=== PATIENT | male | born 1985 | race Caucasian/White ===

== ENCOUNTER 2022-09-06 19:26 | Emergency (ER) | payer BC, MEDICAID, SELFPAY ==
[2022-09-06 19:27] VITALS: BP 148/81; PULSE 68; RESP 16; TEMP 36.8; O2SAT 100; BMI 38.0
--- NOTE | 2022-09-06 21:54 | HMH.EDEYEP ---
Discharge Plan Disposition Patient Disposition: Home, Self-Care Chief Complaint: Eye Problems Prescriptions Prescriptions: No Action amoxicillin 500 mg tablet 500 mg PO BID 10 Days Qty: 20 0RF Referrals Follow up/Referrals: Shakila Keller [Primary Care Provider] - See instructions Clinical Impressions Clinical Impression: Corneal foreign body Instructions Patient Instructions: DI for Eye Pain Discharge ED Provider: Regan Suarez Eye Problem HPI General Chief complaint: Eye Problems Stated complaint: metal shavings in eyes Time Seen by Provider: 09/06/22 21:54 Mode of Arrival: Ambulatory Source of Information: Patient, Spouse and Medical Record Limitations: No Limitations Description of Symptoms (Recalled from ER Triage Doc. by RN): pt grinding under truck and metal shavings fell into rt eye History of Present Illness HPI Narrative: possible metal shaving rt eye MD chief complaint: foreign body Onset (ago): hour(s) Duration: intermittent Location: right eye Eye Symptoms: foreign body sensation Place: home Mechanism: occurred while hammering/grinding Severity: moderate Treatments Prior to Arrival: irrigated eye Related Data Previous Rx's Medication Instructions Recorded amoxicillin 500 mg tablet 500 mg PO BID 10 days #20 tabs 05/28/19 Allergies Allergy/AdvReac Type Severity Reaction Status Date / Time No Known Allergies Allergy Verified 05/28/19 19:31 PFSH PFSH Social History Smoking Status: Current every day smoker tobacco type: cigarettes packs per day: 1 alcohol intake: current substance use type: denies use current occupational status: employed Travel in the last 8 weeks: None household members: spouse housing: house ROS Obtained: Yes All systems reviewed & no additional complaints except as documented Physical Exam General General appearance: in no apparent distress Head Head exam: normocephalic Eye Eye exam: Present PERRL, EOMI and other (no def fb seen and neg fluro stain and irrigated with cristobal lens ) Neck Neck exam: Present trachea midline Respiratory Respiratory exam: Absent respiratory distress Cardiovascular Cardiovascular exam: Present regular rate Extremities Exam Extremities exam: Present full ROM Neurological Exam Neurological exam: Present alert, oriented X3 and CN II-XII intact Psychiatric Psychiatric exam: Present normal affect Skin Skin exam: Absent rash Medical Decision Making Medical Records Medical records reviewed: Yes I reviewed the patient's medical records. [place] Inquiry Pt receiving controlled substance: No Vital Signs: 09/06/22 19:27 Temperature 98.3 F Temperature Source Oral Pulse Rate [Right] 68 Respiratory Rate 16 Blood Pressure [Right Arm] 148/81 H Blood Pressure Mean [Right Arm] 103 02 Sat by Pulse Oximetry 100 Lab Data Lab results reviewed: Yes I reviewed the patient's lab results. Orders (Tests/Meds): ED MEDICATIONS Discontinued Medications Generic Name Dose Route Start Last Admin Trade Name Freq PRN Reason Stop Dose Admin Tetanus/Reduced Diphtheria/Acell Pertussis 0.5 ml 09/06/22 19:59 09/06/22 21:26 Tet/Diphth/Pert-Adult 0.5ml Syringe IM 09/06/22 20:00 0.5 ml .ONCE ONE Administration Medical Decision Narrative: no def fb seen and will refer to vision center Procedures Eye Exam/FB Removal Location: eye (R) Topical anesthetic used: tetracaine Fluorescein Stick(s) used: Yes Time Out performed: Yes Procedure performed under: direct visualization with magnification Evidence of corneal penetration: No Post-procedure medication: ophthalmic antibiotic Eye irrigated w/saline (#ccs): 500 Patient tolerated procedure: no complications Complications: other (no fb seen ) Critical Care Time Critical Care Time Critical Care Time: No Attestation: On 09/06/22, the high probability of a clinically significant, sudden or life threatening deterioration of the fo
[2022-09-06 22:55] VITALS: BP 139/71; PULSE 68; RESP 16; TEMP 36.8; O2SAT 98
== END 2022-09-06 22:57 | disposition home or self-care (01) ==
PROVIDERS: Emergency Provider Emergency Medicine; PCP Family Medicine
DX: T15.01XA Foreign body in cornea, right eye, initial encounter (principal); Z23 Encounter for immunization
CPT/HCPCS: 65205; 90471; 90715; 99283

== ENCOUNTER 2023-12-06 19:13 | Outpatient (CLI) | payer BC, SELFPAY ==
[2023-12-06 17:43] LABS: Coronavirus 19, PCR Not Detected (NotDetected); Influenza A, PCR Not Detected (NotDetected); Influenza B, PCR Not Detected (NotDetected)
== END 2023-12-06 23:59 ==
LOC: LAB.DROPOF 19:13
PROVIDERS: PCP Nurse Practitioner; Visit Provider Nurse Practitioner
DX: J06.9 Acute upper respiratory infection, unspecified (principal); R09.81 Nasal congestion; R07.0 Pain in throat; F17.210 Nicotine dependence, cigarettes, uncomplicated; R51.9 Headache, unspecified
CPT/HCPCS: 87636

== ENCOUNTER 2024-03-21 13:54 | Outpatient (CLI) | payer BC, SELFPAY ==
--- NOTE | 2024-03-21 13:59 | US_ITS ---
FINAL REPORT TECHNIQUE: Ultrasound images of the testicles were obtained bilaterally. Color Doppler images were obtained. CLINICAL HISTORY: Left testicular pain and swelling FINDINGS: The right testicle measures 4.8 x 2.0 x 3.8 cm. The left testicle measures 4.9 x 2.1 x 3.2 cm. Arterial flow is identified bilaterally. No intratesticular masses are identified. There is a small left hydrocele. There is mild prominence of the left epididymis. IMPRESSION: No evidence of testicular mass or torsion. Mild prominence of the left epididymis. Left epididymitis is not excluded. Small left hydrocele. Reviewed, Interpreted and Dictated by Josemanuel Crawford III, MD Transcribed by [facility]esinos Authenticated and [facility]
== END 2024-03-21 23:59 | disposition home or self-care (01) ==
LOC: RAD 13:55
PROVIDERS: PCP Family Medicine; Visit Provider Family Medicine
DX: N50.812 Left testicular pain (principal)
CPT/HCPCS: 76870